=== PATIENT | male | born 1945 | race Caucasian/White ===

== ENCOUNTER → 2016-08-13 | Day surgery (SDC) | payer MEDICARE, OTHER ==
[~2016-08-13] VITALS: Ht 175.3 cm; Wt 97.1 kg
[~2016-08-13] MED LIST: ACETAMINOPHEN/HYDROcodone 325 MG/5 MG TAB PO PRN; BELLADONNA ALKALOIDS/OPIUM 60 MG SUPP RECTAL SCH; CALC1TAB63; CHLORHEXIDINE GLUCONATE 2 % 1 PACK (2 CLOTHS) TOPICAL PRN; CHOL5000 PO; CYAN1TAB24; DEXAMETHASONE SOD PHOS 4 MG/ML VIAL ONE; DILA4TAB2 PO; DO NOT ADM ANY ANTICOAGULANT DRUGS PRN; FAMO1TAB37 PO; FAMOTIDINE 20 MG/2 ML VIAL ONE; HYDR-3516 PO; HYDROmorphone HCL PF 2 MG/ML VIAL IV PRN; INSULIN HUMAN REGULAR 1,000 UNITS/10 ML VIAL SQ PRN; IOHEXOL 350 MG/ML 50 ML BTL (for RAD DIAG) ONE; LACTATED RINGER'S 1000 ML IV PRN; LEXA10TA PO; METOPROLOL TARTRATE 25 MG TAB PO PRN; MIDAZOLAM HCL 2 MG/2 ML VIAL ONE; MULTTAB27; ONDANSETRON HCL 4 MG/2 ML VIAL IV PUSH ONE; ONDANSETRON HCL 4 MG/2 ML VIAL IV PUSH PRN; OXYC-404 PO; PANT40TA3 PO; POLY17PO3; POVIDONE IODINE 5% (ANTISEPSIS KIT) 4 APPLICATIONS EACH NARE PRN; PROPOFOL 200 MG/20 ML AMP IV ONE; ROSU20 PO; RUTI500T PO; SODIUM CHLORID 0.9% 500 ML IV PRN; ceFAZolin 1,000 MG/NS 100 ML IV SCH; ePHEDrine/NS 25 MG/5 ML SYR IV ONE; fentaNYL CITRATE 250 MCG/5 ML AMP ONE
[2016-08-13 08:44] VITALS: BP 135/73; PULSE 74; RESP 18; TEMP 98.2; O2SAT 98
[2016-08-13 08:52] LABS: AUTOMATED NEUTROPHIL # 6.2 TH/MM3 (1.8-7.7); BASOPHIL % 0.3 % (0.0-2.0); EOSINOPHIL % 0.2 % (0.0-4.0); HEMATOCRIT 27.7 % (39.0-51.0); HEMO FLAGS DIFF FINAL; LYMPH % 13.2 % (9.0-44.0); LYMPHOCYTE # 1.1 TH/MM3 (1.0-4.8); MEAN CELL VOLUME 94.6 FL (80.0-100.0); MEAN CORPUSCULAR HEMOGLOBIN 30.5 PG (27.0-34.0); MEAN CORPUSCULAR HGB CONC 32.2 % (32.0-36.0); MONO % 9.8 % (0.0-8.0); NEUT % 76.5 % (16.0-70.0); PLATELET COUNT 108 TH/MM3 (150-450); RED BLOOD COUNT 2.93 MIL/MM3 (4.50-5.90); RED CELL DISTRIBUTION WIDTH 20.5 % (11.6-17.2); WHITE BLOOD COUNT 8.1 TH/MM3 (4.0-11.0)
--- NOTE | 2016-08-13 10:44 | PD.OP ---
Operative Report Date of Surgery: Aug 13, 2016 Preoperative Diagnosis: Metastatic prostate cancer with right hydronephrosis with retroperitoneal adenopathy versus right ureteral tumor Postoperative Diagnosis: Metastatic prostate cancer with right hydronephrosis due to retroperitoneal adenopathy, meatal stenosis, radiation cystitis Procedure: Cystoscopy with urethral dilatation, bilateral retrograde study, right ureteroscopy with right double-J stent insertion Anesthesia: Gen. LMA Surgeon: Mendez Toussaint Pigment Furnace Tender(s): None Resident Surgeon: None Operation and Findings: 71-year-old male with history of metastatic prostate cancer. Recent CT findings demonstrated right hydronephrosis with suggestion of ureteral obstruction due to tumor versus extrinsic compression from retroperitoneal adenopathy. Renal scan demonstrating partial right obstruction. Patient was admitted to undergo cystoscopy with bilateral retrograde study and right ureteroscopy with possible ureteral biopsy and right double-J stent insertion. Risk and benefits were discussed preoperatively and he is willing to proceed. Patient is brought to the [facility] by myself as [place] Rascon. His placement dorsal lithotomy position, prepped and draped in usual sterile fashion , received preprocedure bites, and general LMA anesthesia was administered. Attempt was made to pass a 22 Syrian cystoscope this was unsuccessful. The meatus was stenotic and he underwent urethral dilatation with a 20 Syrian up to a 26 Syrian sound. The cystoscope and passed easily into the bladder. Cha cystoscopy demonstrated evidence of radiation cystitis. No bladder tumors were identified. The left ureteral orifice was cannulated with a 5 Syrian opening catheter and retrograde study was performed showing a normal ureter and clotting system on the left. The right side was then cannulated with 5 Syrian opening catheter and retrograde study was performed. Ureteral rotation was identified at the lower one third of the ureter with tortuosity up to the collecting system. A 0.35 sensor wire was then passed through the open-ended catheter and placed in good position with a curl in the right kidney. The rigid Baer ureteroscope was then passed up the right ureter and there is no evidence of a ureteral tumor. It was tight though at the area of the crossing vessel. Decision made then to leave a stent in place. A 24 Syrian Bard senior living stent was then passed over the wire with a good curl in the kidney and a good curl in the bladder. The bladder was evacuated and he was awoken and transferred to review stable condition. He will need to follow-up in 3 months and to arrange for a stent change in the future. He tolerated the procedure well. Mendez Toussaint DO Aug 13, 2016 10:44
[2016-08-13 12:38] VITALS: BP 137/83; PULSE 66; RESP 16; TEMP 98.3; O2SAT 96
--- NOTE | 2016-08-13 15:34 | EKG ---
Date Performed: 08/13/2016 Time Performed: 08:54:42 PTAGE: 71 years EKG: Sinus rhythm PROBABLE LATERAL MYOCARDIAL INFARCTION , PROBABLY OLD ABNORMAL ECG NO PREVIOUS TRACING DOCTOR: Malik Calzada Interpretating Date/Time 08/13/2016 15:33:08
== END | disposition home or self-care (01) ==
LOC: HSDC 07:52
PROVIDERS: ATTEND Urology
DX: C61 Malignant neoplasm of prostate (principal); N13.30 Unspecified hydronephrosis; N35.9 Urethral stricture, unspecified; R94.31 Abnormal electrocardiogram [ECG] [EKG]
CPT/HCPCS: 00910; 52332; 52351; 74420; 85025; 93005; C1769; J0690; J1100; J1642; J2250; J2405; J3010; J7120; Q9967